=== PATIENT | female | born 1990 | race Caucasian/White ===

== ENCOUNTER 2018-06-09 14:34 | Outpatient (CLI) | payer BC ==
--- NOTE | 2018-06-09 15:27 | RAD ---
LUMBAR SPINE TWO VIEWS: HISTORY: Right leg and back pain. COMPARISON: Radiograph from 05/18/2018. FINDINGS: Five [id number] lumbar-type vertebrae. No acute fracture or malalignment. Low-grade levoscolio sis. Facet joints are normal. No paraspinal soft tissue abnormality. IMPRESSION: Normal examination. POS: [facility]
== END 2018-06-09 14:35 | disposition home or self-care (01) ==
LOC: TBSIIMAG 14:34
PROVIDERS: ATTEND Neurological Surgery
DX: M54.16 Radiculopathy, lumbar region (principal); M54.5 Low back pain
CPT/HCPCS: 72100

== ENCOUNTER 2018-06-23 07:08 | Outpatient (CLI) | payer BC, OTHER ==
--- NOTE | 2018-06-23 09:42 | MRI ---
MRI LUMBAR SPINE NONCONTRAST: HISTORY: Low back pain with right leg radiculopathy. FINDINGS: The conus medullaris has a normal appearance. Vertebral body height and alignment are maintained. T here are mild discogenic endplate changes within the bone marrow of the lower lumbar spine. T12-L1/L1-L2: Central canal and neural foramina are patent. L2-L3: Small amount of fluid within the facets. Central canal and neural foramina are patent. L3-L4: Fluid and facet hypertrophy. Central canal is patent. Mild disk bulge and degenerative taylor ges with mild stenosis of each neural foramen. L4-L5: Desiccation of the disk. Minimal disk bulge. The thecal sac is patent. Degenerative change s with moderate stenosis of each neural foramen. L5-S1: Moderate right posterior paracentral disk protrusion compressing the right side of the thecal sac and origin of the right S1 nerve root. Mild degenerative changes of the facets. Mild bilateral foraminal stenosis. IMPRESSION: 1. Moderate right posterior disk protrusion at the lumbosacral junction, most greatly affecting the right S1 nerve root origin. 2. Otherwise, mild degenerative changes of the lower lumbar spine, as detailed above. POS: [facility]
== END 2018-06-23 07:09 | disposition home or self-care (01) ==
LOC: BICMRI 07:08
PROVIDERS: ATTEND Family Medicine
DX: M54.41 Lumbago with sciatica, right side (principal); M51.17 Intervertebral disc disorders with radiculopathy, lumbosacral region; M47.817 Spondylosis without myelopathy or radiculopathy, lumbosacral region
CPT/HCPCS: 72148

== ENCOUNTER 2018-07-16 09:59 | Day surgery (SDC) | payer BC ==
[2018-07-15 12:09] VITALS: BMI 24.3
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
[2018-07-16 11:01] LABS: Hemoglobin 13.9 g/dL (12.0-16.0); Mean Corpuscular Hemoglobin 32.5 pg (27.0-31.0); Mean Corpuscular Volume 98.4 fL (78.0-98.0); Mean Platelet Volume 6.5 fL (7.4-10.4); Platelet Count 221 thou/uL (130-400); RBC Distribution Width 11.4 % (11.5-14.5); Red Blood Cell (RBC) Count 4.28 mill/uL (4.20-5.40); White Blood Cell (WBC) Count 3.8 thou/uL (4.8-10.8)
[2018-07-16 11:11] LABS: INR-International Normal Ratio 0.9; PTT 28.3 SEC (22.9-36.1); Prothrombin Time 11.9 SEC (12.0-14.7)
[2018-07-16 11:26] LABS: Anion Gap 13 mmol/L (10-20); BUN (Urea Nitrogen) 9 mg/dL (7.0-18.7); Calc. Creatinine Clearance 135 mL/min (70-130); Calcium 9.5 mg/dL (7.8-10.44); Carbon Dioxide 29 mmol/L (22-29); Chloride 103 mmol/L (98-107); Estimated GFR-MDRD Greater than 90; Glucose 91 mg/dL (70-105); Potassium 4.4 mmol/L (3.5-5.1); Sodium 141 mmol/L (136-145)
[2018-07-16] MEDS ORDERED: Thrombin 5000 UNITS/5 ML VIAL ONE (12:12)
[2018-07-16] MEDS ORDERED: Sodium Chloride 0.9% 10 ML ONE (12:12)
[2018-07-16] MEDS ORDERED: Bupivacaine HCl 0.5%/Epinephrine 1:200,000/PF 30 ml Vial ONE (12:12)
[2018-07-16] MEDS ORDERED: Fentanyl 100 MCG/2 ML VIAL ONE ×2 (12:31→15:09)
[2018-07-16] MEDS ORDERED: Midazolam HCl 2 mg/2 ml Vial ONE (12:31)
[2018-07-16] MEDS ORDERED: Ketorolac Tromethamine 30 MG/ML VIAL ONE (15:02)
[2018-07-16] MEDS ORDERED: Ondansetron PF 4 MG/2 ML Vial ONE (15:02)
--- NOTE | 2018-07-16 21:37 | OP ---
DATE OF PROCEDURE: 07/16/2018 CIRCULATION WORKER: Emily Cowart PA-C. PREOPERATIVE INDICATION: Treat pain and prevent neurological deterioration. PREOPERATIVE DIAGNOSIS: Severe right S1 radiculopathy from intervertebral disk herniation at L5-S1. POSTOPERATIVE DIAGNOSIS: Severe right S1 radiculopathy from intervertebral disk herniation at L5-S1. PROCEDURES PERFORMED: Right partial hemilaminectomy, medial facetectomy, foraminotomy, and microdiskectomy at L5-S1, operating microscope. PREOPERATIVE MEDICATION: Ancef 2 g IV. DRAIN NUMBER: 0. DRAIN TYPE: None. DESCRIPTION OF PROCEDURE: The patient was brought to the operating room. General endotracheal anesthesia was induced. The patient was positioned prone on the operating table with her chest and hips supported by gel-filled chest rolls. A lateral fluoro radiograph was used to plan our incision. The lumbar skin was sterilely prepped and draped. We opened a midline incision with a 10 blade knife and controlled bleeding with bipolar cautery. We used monopolar cautery to dissect through the thoracodorsal fascia. We incised the fascia right of the midline and reflected the paraspinal muscles off the spinous process and lamina of L5 and S1 on the right side. A self-retaining retractor was placed and a lateral fluoro radiograph confirmed the levels upon which we were operating. We then used a Kerrison rongeur to fashion a partial hemilaminectomy and medial facetectomy. The operating microscope was brought into the field. Under microscopic magnification and using microsurgical techniques, we removed the yellow ligament on the right side. We identified the common thecal sac and the S1 nerve root. S1 nerve root was tethered and adhered to a disk protrusion in the ventral epidural space. With careful bipolar cautery and sharp dissection, we freed it just enough to visualize the lateral portion of the disk herniation. We removed a very large disk fragment from the ventral surface of the nerve successfully. After that diskectomy, the nerve was freely mobile. We retracted medially and found a hole in the annulus fibrosus. We reached to the hole and removed disk fragments that were loose within the disk space, but left the disk that was attached to the endplates. At the completion of our diskectomy, all the remaining disk was firmly adherent. There was no further compression of the nerve root. We irrigated copiously with bacitracin irrigation. Gentle bipolar cautery was used for epidural bleeding, we waxed the bone edges. The patient was a smoker and we treated the wound with vancomycin powder. Local anesthetic was infused in the paraspinal muscles, and we closed in anatomical layers, and we applied a sterile dressing. This was a clean case, no contamination. Job ID: [id number]
--- NOTE | 2018-07-17 16:42 | EKG ---
Test Reason : PREOP Blood Pressure : / mmHG Vent. Rate : 075 BPM Atrial Rate : 075 BPM P-R Int : 162 ms QRS Dur : 084 ms QT Int : 376 ms P-R-T Axes : 071 072 063 degrees QTc Int : 419 ms Normal sinus rhythm Normal ECG When compared with ECG of 27-JUL-2013 13:08, No significant change was found Confirmed by DR. Denita GOTTI ([id number]) on 07/17/2018 4:42:35 PM Referred By: KENDAL Confirmed By:DR. Denita GOTTI
== END 2018-07-16 17:05 | disposition home or self-care (01) ==
LOC: SDC 09:59
PROVIDERS: ATTEND Neurological Surgery
PROC: 0SB20ZZ Excision of Lumbar Vertebral Disc, Open Approach (ICD-10-PCS; principal; 2018-07-16)
PROC: 01NB0ZZ Release Lumbar Nerve, Open Approach (ICD-10-PCS; principal; 2018-07-16)
DX: M51.17 Intervertebral disc disorders with radiculopathy, lumbosacral region (principal); F32.9 Major depressive disorder, single episode, unspecified; F17.200 Nicotine dependence, unspecified, uncomplicated; Z79.899 Other long term (current) drug therapy
CPT/HCPCS: 76000; 80048; 85027; 85610; 85730; 93005; 93010; J0670; J1885; J2250; J2405; J3010; J3370; J3490